=== PATIENT | female | born 1955 | race African-American/Black ===

== ENCOUNTER 2017-11-28 23:10 | Emergency (ER) | payer BC ==
[2017-11-29 01:38] VITALS: BP 130/79; PULSE 72; BMI 22.3
--- NOTE | 2017-11-29 01:40 | PDOC ---
History of Present Illness - History of Present Illness Initial Comments: 11/29/17 01:49 The patient is a 62 year old female, with a significant past medical history of asthma and anemia, who presents to the emergency department with intermittent chest discomfort since late September. The patient states she was treated with a course of Tamiflu in October, followed by a course of antibiotics for what she states was an upper respiratory infection. She states the chest discomfort resolved shortly after completing those medications, however, had a sudden onset of the diffuse chest discomfort last night while at rest. She reports occasional discomfort to her left arm, but denies the pain now. She states she is currently asymptomatic. She reportedly was started on a medication for her blood pressure recently. The patient denies shortness of breath, headache and dizziness. The patient denies fever, chills, nausea, vomit, diarrhea and constipation. The patient denies dysuria, frequency, urgency and hematuria. Allergies: sulfa <Gwen Orozco - Last Filed: 11/29/17 01:59> - General History Source: Patient <Guanakito Bolton - Last Filed: 11/29/17 03:32> - General Chief Complaint: Chest Pain Stated Complaint: CHEST PAIN Time Seen by Provider: 11/29/17 01:31 Past History <Gwen Orozco - Last Filed: 11/29/17 01:59> - Past Medical History Anemia: Yes Asthma: Yes Cancer: No Cardiac Disorders: (cardiac cath-no problem) CVA: No COPD: No CHF: No Dementia: No Diabetes: No GI Disorders: Yes (acid reflux) Disorders: No HTN: No Hypercholesterolemia: No Liver Disease: No Seizures: No Thyroid Disease: No - Surgical History Abdominal Surgery: No Appendectomy: No Cardiac Surgery: No Cholecystectomy: No Lung Surgery: No Neurologic Surgery: No Orthopedic Surgery: No - Suicide/Smoking/Psychosocial Hx Smoking Status: No Smoking History: Unknown if ever smoked Have you smoked in the past 12 months: No Number of Cigarettes Smoked Daily: 0 Information on smoking cessation initiated: No Hx Alcohol Use: No Drug/Substance Use Hx: No Substance Use Type: None Hx Substance Use Treatment: No <Guanakito Bolton - Last Filed: 11/29/17 03:32> - Past Medical History Allergies/Adverse Reactions: Allergies Allergy/AdvReac Type Severity Reaction Status Date / Time house dust Allergy Severe Hives Verified 11/29/17 01:36 eggs Allergy Severe Swelling Uncoded 11/29/17 01:36 mold Allergy Severe Hives Uncoded 11/29/17 01:36 peanuts Allergy Severe Swelling Uncoded 11/29/17 01:36 sulfa Allergy Severe Itching Uncoded 11/29/17 01:36 Home Medications: Ambulatory Orders Cyclobenzaprine HCl [Flexeril] 5 mg PO PRN PRN 04/24/12 Glucosamine HCl/Vitamin D3 [Glucosamine Plus Vitamin D Tab] 1 each PO DAILY 08/26 Amlodipine Besylate [Norvasc -] 5 mg PO DAILY 11/29/17 Esomeprazole Magnesium [Nexium 24Hr] 22.3 mg PO DAILY 11/29/17 Review of Systems - Review of Systems Able to Perform ROS?: Yes Comments:: 11/29/17 01:49 CONSTITUTIONAL: Absent: fever, chills, diaphoresis, generalized weakness, malaise, loss of appetite HEENT: Absent: rhinorrhea, nasal congestion, throat pain, throat swelling, difficulty swallowing, mouth swelling, ear pain, eye pain, visual Changes CARDIOVASCULAR: (+) intermittent chest pain, Absent:syncope, palpitations, irregular heart rate , lightheadedness, peripheral edema RESPIRATORY: Absent: cough, shortness of breath, dyspnea with exertion, orthopnea, wheezing, stridor, hemoptysis GASTROINTESTINAL: Absent: abdominal pain, abdominal distension, nausea, vomiting, diarrhea, constipation, melena, hematochezia GENITOURINARY: Absent: dysuria, frequency, urgency, hesitancy, hematuria, flank pain, genital pain MUSCULOSKELETAL: (+) intermittent left arm pain. Absent: myalgia, arthralgia, joint swelling SKIN: Absent: rash, itching, pallor HEMATOLOGIC/IMMUNOLOGIC: Absent: easy bleeding, easy bruising, lymphadenopathy, frequent infections ENDOCRINE: Absent: unexplained weight gain, unexplained weight loss, heat intolerance, cold intolerance NEUROLOGIC: Absent: headache, focal weakness or paresthesias, dizziness, unsteady gait, seizure, mental status changes, bladder or bowel incontinence PSYCHIATRIC: Absent: anxiety, depression, suicidal or homicidal ideation, hallucinations. <Gwen Orozco - Last Filed: 11/29/17 01:59> *Physical Exam - Vital Signs Last Vital Signs Temp Pulse Resp BP Pulse Ox 72 14 130/79 98 11/29/17 01:36 11/29/17 01:36 11/29/17 01:36 11/29/17 01:36 - Physical Exam Comments: 11/29/17 01:50 GENERAL: Well developed, well nourished. Awake and alert. No acute distress. HEENT: Normocephalic, atraumatic. PERRLA, EOMI. No conjunctival pallor. Sclera are non- icteric. Moist mucous membranes. Oropharynx is clear. NECK: Supple. Full ROM. No JVD. Carotid pulses 2+ and symmetric, without bruits. No thyromegaly. No lymphadenopathy. CARDIOVASCULAR: Regular rate and rhythm. No murmurs, rubs, or gallops. Distal pulses are 2+ and symmetric. PULMONARY: No evidence of respiratory distress. Lungs clear to auscultation bilaterally. No wheezing, rales or rhonchi. ABDOMINAL: Soft. Non-tender. Non-distended. No rebound or guarding. No organomegaly. Normoactive bowel sounds. MUSCULOSKELETAL Normal range of motion at all joints. No bony deformities or tenderness. No CVA tenderness. EXTREMITIES: No cyanosis. No clubbing. No edema. No calf tenderness. SKIN: Warm and dry. Normal capillary refill. No rashes. No jaundice. NEUROLOGICAL: Alert, awake, appropriate. Cranial nerves 2-12 intact. Normoreflexic in the upper and lower extremities. Normal speech. Toes are down-going bilaterally. Gait is normal without ataxia. PSYCHIATRIC: Cooperative. Good eye contact. Appropriate mood and affect <Gwen Orozco - Last Filed: 11/29/17 01:59> - Vital Signs Last Vital Signs Temp Pulse Resp BP Pulse Ox 72 14 130/79 98 11/29/17 01:36 11/29/17 01:36 11/29/17 01:36 11/29/17 01:36 <Guanakito Bolton - Last Filed: 11/29/17 03:32> Heart Score/ECG Review - ECG Intrepretation Rhythm: Regular Rhythm - [place]: Normal <Gwen Orozco - Last Filed: 11/29/17 01:59> ED Treatment Course - LABORATORY CBC & Chemistry Diagram: 11/29/17 01:45 11/29/17 01:45 <Gwen Orozco - Last Filed: 11/29/17 01:59> - LABORATORY CBC & Chemistry Diagram: 11/29/17 01:45 11/29/17 01:45 <Guanakito Bolton - Last Filed: 11/29/17 03:32> Medical Decision Making - Medical Decision Making 11/29/17 03:31 Dr. Bolton: The scribe's documentation has been prepared under my direction and personally reviewed by me in its entirery. I confirm that the note above accurately reflects all work, treatment, procedures, and medical decision making performed by me. All studies returned to be normal. EKG is normal sinus rhythm. Patient advised follow-up wit her primary care physician, and corporate concierge for further evaluation <Guanakito Bolton - Last Filed: 11/29/17 03:32> *DC/Admit/Observation/Transfer - Attestations Scribe Attestion: 11/29/17 01:50 Documentation prepared by Gwen Orozco, acting as medical surgery nurse for Guanakito Bolton DO <Gwen Orozco - Last Filed: 11/29/17 01:59> - Discharge Dispostion Admit: No <Guanakito Bolton - Last Filed: 11/29/17 03:32> Diagnosis at time of Disposition: Chest pain Qualifiers: Chest pain type: unspecified Qualified Code(s): R07.9 - Chest pain, unspecified - Discharge Dispostion Disposition: HOME Condition at time of disposition: Stable - Referrals Referrals: Ashley Gee MD [Staff Physician] - David Wylie MD [Staff Physician] - - Patient Instructions Printed Discharge Instructions: DI for Chest Pain Additional Instructions: Please follow up with your doctor and corporate concierge or the doctors referred to you here in the ER. continue your medication.
[2017-11-29 02:01] LABS: BASO % 0.9 % (0-2.0); EOS % 3.6 % (0-4.5); HEMATOCRIT 37.3 % (32.4-45.2); LYMPH % 45.6 % (8-40); MCH 26.5 pg (25.7-33.7); MCHC 32.2 g/dl (32.0-36.0); MEAN CELL VOLUME 82.3 fl (80-96); MEAN PLT VOLUME 8.2 fl (7.5-11.1); MONO % 6.6 % (3.8-10.2); NEUT % 43.3 % (42.8-82.8); PLATELET COUNT 233 K/MM3 (134-434); RBC 4.53 M/mm3 (3.60-5.2); RDW 13.9 % (11.6-15.6); WHITE BLOOD COUNT 6.2 K/mm3 (4.0-10.0)
[2017-11-29 02:30] LABS: ALBUMIN 3.8 g/dl (3.4-5.0); ANION GAP 6 (8-16); BILIRUBIN,TOTAL 0.2 mg/dL (0.2-1.0); BLOOD UREA NITROGEN 21 mg/dL (7-18); CALCIUM 9.2 mg/dL (8.5-10.1); CHLORIDE 106 mmol/L (98-107); CO2 29 mmol/L (21-32); CREATININE 0.7 mg/dL (0.55-1.02); GLUCOSE,RANDOM 97 mg/dL (74-106); LIPASE 74 U/L (73-393); MAGNESIUM 2.2 mg/dL (1.8-2.4); POTASSIUM 3.9 mmol/L (3.5-5.1); SGOT/AST 33 U/L (15-37); SGPT/ALT 45 U/L (12-78); SODIUM 141 mmol/L (136-145); TOT PROT 7.4 g/dl (6.4-8.2)
[2017-11-29 02:33] LABS: ALK PHOS 103 U/L (45-117); INR 0.95 (0.82-1.09); PROTHROMBIN TIME (PATIENT) 10.7 SEC (9.98-11.88)
--- NOTE | 2017-11-29 11:50 | EKG ---
Test Reason : Blood Pressure : / mmHG Vent. Rate : 068 BPM Atrial Rate : 068 BPM P-R Int : 150 ms QRS Dur : 084 ms QT Int : 406 ms P-R-T Axes : 046 -25 026 degrees QTc Int : 431 ms NORMAL SINUS RHYTHM NORMAL ECG WHEN COMPARED WITH ECG OF 24-APR-2012 13:06, NONSPECIFIC T WAVE ABNORMALITY HAS REPLACED INVERTED T WAVES IN INFERIOR LEADS T WAVE INVERSION LESS EVIDENT IN ANTERIOR LEADS Confirmed by VALENCIA ESCAMILLA, MONTEZ ([id number]) on 11/29/2017 11:49:35 AM Referred By: Confirmed By:MONTEZ BIRMINGHAM MD
== END 2017-11-29 03:52 | disposition home or self-care (01) ==
LOC: JER 23:10
DX: R07.9 Chest pain, unspecified (principal); I10 Essential (primary) hypertension; Z98.61 Coronary angioplasty status; K21.9 Gastro-esophageal reflux disease without esophagitis; J45.909 Unspecified asthma, uncomplicated; D64.9 Anemia, unspecified
CPT/HCPCS: 36415; 80053; 82550; 83690; 83735; 84484; 85025; 85379; 85610; 93005; 93010; 99284-25

== ENCOUNTER 2020-07-22 14:55 | Emergency (ER) | payer BC ==
--- NOTE | 2020-07-22 15:38 | TELE ---
HPI Do you have fever,cough or shortness of breath?: No - General Reason For Visit: COVID History Source: Patient Exam Limitations: No Limitations - History of Present Illness 07/22/20 15:36 65 year old female with mild fatigue requesting COVID testing. Pt otherwise denies: fevers, chills, syncope, lightheadedness, dizziness, headaches, neck pain, chest pain, shortness of breath, palpitations, back pain, abdominal pain, nausea, vomiting, diarrhea, constipation. Past History - Medical History Allergies/Adverse Reactions: Allergies Allergy/AdvReac Type Severity Reaction Status Date / Time house dust Allergy Severe Hives Verified 11/29/17 01:36 eggs Allergy Severe Swelling Uncoded 11/29/17 01:36 mold Allergy Severe Hives Uncoded 11/29/17 01:36 peanuts Allergy Severe Swelling Uncoded 11/29/17 01:36 sulfa Allergy Severe Itching Uncoded 11/29/17 01:36 Home Medications: Ambulatory Orders Cyclobenzaprine HCl [Flexeril] 5 mg PO PRN PRN 04/24/12 Glucosamine HCl/Vitamin D3 [Glucosamine Plus Vitamin D Tab] 1 each PO DAILY 04/24/12 Amlodipine Besylate [Norvasc -] 5 mg PO DAILY 11/29/17 Esomeprazole Magnesium [Nexium 24Hr] 22.3 mg PO DAILY 11/29/17 Anemia: Yes Asthma: Yes Cancer: No Cardiac Disorders: (cardiac cath-no problem) CVA: No COPD: No CHF: No Dementia: No Diabetes: No GI Disorders: Yes (acid reflux) Disorders: No HTN: No Hypercholesterolemia: No Liver Disease: No Seizures: No Thyroid Disease: No - Surgical History Abdominal Surgery: No Appendectomy: No Cardiac Surgery: No Cholecystectomy: No Lung Surgery: No Neurologic Surgery: No Orthopedic Surgery: No - Psycho-Social/Smoking History Smoking Status: No Smoking History: Unknown if ever smoked Have you smoked in the past 12 months: No Number of Cigarettes Smoked Daily: 0 *Physical Exam - Physical Exam 07/22/20 15:37 Unable to obtain physical exam as patient's phone was unable to video chat via backline - Medical Decision Making 07/22/20 15:37 Patient to proceed to [facility] for 1219 testing Isolation precautions given Discharge Diagnosis at time of Disposition: COVID-19 - Referrals - Patient Instructions Discharge Instructions: [facility]-Coronavirus Instructions - Discharge Disposition: HOME Condition at time of Disposition: Stable
== END 2020-07-22 15:38 | disposition home or self-care (01) ==
LOC: JVIRT 14:55
DX: Z03.818 Encounter for observation for suspected exposure to other biological agents ruled out (principal)
CPT/HCPCS: 99441-95; C9803; U0003

== ENCOUNTER 2022-11-24 09:09 | Emergency (ER) | payer OTHER, BC ==
[2022-11-24 09:16] VITALS: BP 157/69; PULSE 56; RESP 20; TEMP 97.8; BMI 21.4
[2022-11-24] MEDS ORDERED: SODIUM CHLORIDE 0.9% 500 ML INFUS.BAG IV ONE (10:21)
[2022-11-24 10:23] LABS: BASO % 0.9 % (0-2.0); EOS % 1.7 % (0-4.5); HEMATOCRIT 36.6 % (32.4-45.2); HEMOGLOBIN 11.8 GM/dL (10.7-15.3); LYMPH % 50.1 % (8-40); MCH 26.5 pg (25.7-33.7); MCHC 32.2 g/dl (32.0-36.0); MEAN CELL VOLUME 82.4 fl (80-96); MEAN PLT VOLUME 8.2 fl (7.5-11.1); MONO % 7.3 % (3.8-10.2); PLATELET COUNT 215 10^3/uL (134-434); RBC 4.44 M/mm3 (3.60-5.2); RDW 14.4 % (11.6-15.6); WHITE BLOOD COUNT 5.5 K/mm3 (4.0-10.0)
[2022-11-24 10:32] LABS: INR 0.99 (0.83-1.09); PROTHROMBIN TIME (PATIENT) 11.5 SEC (9.7-13.0)
[2022-11-24 10:35] LABS: ACTIVATED PTT 28.2 SECONDS (25.2-36.5)
[2022-11-24 10:50] LABS: BLOOD UREA NITROGEN 19.8 mg/dL (7-18); CALCIUM 9.7 mg/dL (8.5-10.1); MAGNESIUM 2.4 mg/dL (1.8-2.4)
[2022-11-24 10:53] LABS: CREATININE 1.1 mg/dL (0.55-1.3)
[2022-11-24 10:55] LABS: BILIRUBIN,TOTAL 0.3 mg/dL (0.2-1); TOT PROT 7.2 g/dl (6.4-8.2)
[2022-11-24 12:41] LABS: EPI CELLS 21 /uL (0-25.1); HYALINE CASTS 3 /uL (0-3.1); PH,URINE 5.5 (5.0-8.0); URINE APPEARANCE CLOUDY; URINE BACTERIA 7 /uL (0-1359); URINE BILIRUBIN NEGATIVE (NEGATIVE); URINE COLOR YELLOW; URINE GLUCOSE (UA) NEGATIVE (NEGATIVE); URINE KETONE TRACE (NEGATIVE); URINE LEUK ESTERASE 1+ (NEGATIVE); URINE NITRITE NEGATIVE (NEGATIVE); URINE PROTEIN NEGATIVE (NEGATIVE); URINE RBC 38 /uL (0-23.9); URINE WBC 112 /uL (0-25.8)
[2022-11-24 12:58] LABS: URINE CRYSTALS CALCIUM OXALATE MOD /hpf
== END 2022-11-24 14:52 | disposition home or self-care (01) ==
LOC: JER 09:09
DX: E03.8 Other specified hypothyroidism (principal); E06.3 Autoimmune thyroiditis
CPT/HCPCS: 0241U-QW; 36415; 71046-TC-FY; 80053; 81003; 83690; 83735; 84443; 84484; 85025; 85610; 85730; 87086; 93005; 93010; 99285-25

== ENCOUNTER 2023-02-26 04:05 | Day surgery (SDC) | payer OTHER, BC ==
[2023-02-22 13:54] VITALS: BMI 20.5
[~2023-02-26 04:05] MED LIST: ceFAZolin SODIUM 1 GM VIAL IVPB ONE
[2023-02-26] MEDS ORDERED: ACETAMINOPHEN 325 MG TABLET (FP) PO PRN (07:07)
[2023-02-26] MEDS ORDERED: IBUPROFEN 400 MG TABLET (FP) PO PRN (07:07)
[2023-02-26] MEDS ORDERED: PROPOFOL 20 ML ONE (07:20)
[2023-02-26] MEDS ORDERED: MIDAZOLAM HCL 2 MG/2 ML SINGLE DOSE VIAL ONE (07:20)
[2023-02-26] MEDS ORDERED: SUCCINYLCHOLINE CHLORIDE 200 MG/10 ML SYRINGE ONE (07:20)
[2023-02-26] MEDS ORDERED: ONDANSETRON 4 MG/2 ML VIAL ONE (08:00)
[2023-02-26] MEDS ORDERED: DEXAMETHASONE SOD PHOSPHATE 4 MG/1 ML VIAL ONE (08:00)
[2023-02-26 08:15] LABS: INR 0.94 (0.83-1.09); PROTHROMBIN TIME (PATIENT) 10.9 SEC (9.7-13.0)
[2023-02-26 08:17] LABS: ACTIVATED PTT 32.2 SECONDS (25.2-36.5)
[2023-02-26] MEDS ORDERED: KETOROLAC TROMETHAMINE 30 MG/1 ML VIAL ONE (08:32)
[2023-02-26] MEDS ORDERED: oxyCODONE HCL 5 MG TABLET PO PRN (08:43)
[2023-02-26] MEDS ORDERED: ONDANSETRON 4 MG/2 ML VIAL IVPUSH PRN (08:43)
[2023-02-26] MEDS ORDERED: LACTATED RINGERS SOLUTION 1,000 ML IV SCH (08:45)
[2023-02-26] MEDS ORDERED: ACETAMINOPHEN INJECTION 100 ML IVPB ONE (10:01)
[2023-02-26 11:15] VITALS: TEMP 97.5
[2023-02-26] MEDS ORDERED: IBUPROFEN 400 MG TABLET (FP) PO ONE (11:20)
[2023-02-26] MEDS ORDERED: ACETAMINOPHEN 1000 MG/100 ML BAG IVPB ONE (11:52)
[2023-02-26 14:09] VITALS: BP 122/65; PULSE 60; RESP 16
== END 2023-02-26 12:00 | disposition home or self-care (01) ==
LOC: JASU-SURG 04:05
PROVIDERS: ATTEND Obstetrics & Gynecology
PROC: 0UBC7ZX Excision of Cervix, Via Natural or Artificial Opening, Diagnostic (ICD-10-PCS; principal; 2023-02-26 07:30)
PROC: 0UB98ZZ Excision of Uterus, Via Natural or Artificial Opening Endoscopic (ICD-10-PCS; 2023-02-26 07:30)
DX: N95.0 Postmenopausal bleeding (principal); N88.2 Stricture and stenosis of cervix uteri; N84.0 Polyp of corpus uteri
CPT/HCPCS: 36415; 85610; 85730; 86850; 86900; 86901; 88305-TC; 88307-TC; 88341-TC; 88342-TC; 94760